=== PATIENT | female | born 1945 ===

== ENCOUNTER 2021-05-31 06:18 | Day surgery (SDC) | payer OTHER | END 2021-05-31 10:45 | disposition home or self-care (01) | LOC: AMB-ENDOS 06:18 → CIR.AMB 06:18 → AMB-ENDOS 10:45 → CIR.AMB 13:00 | PROVIDERS: ATTEND Surgery | DX: K63.5 Polyp of colon (principal) ==

== ENCOUNTER 2021-10-22 12:45 | Inpatient (IN) | payer OTHER ==
[~2021-10-22] VITALS: Ht 152.4 cm; Wt 61.2 kg
[2021-10-26] MEDS ORDERED: ATORVASTATIN CA10 MG PO (09:58)
[2021-11-10] MEDS ORDERED: VANCOMYCIN HCL125 MG PO (10:46)
[2021-11-10] MEDS ORDERED: CIPRO500 MG PO (10:47)
== END 2021-11-10 11:21 | disposition home or self-care (01) | DRG 330 ==
LOC: SURH 10-26 12:00 → O/R 10-26 12:09 → SURH 10-26 12:09
PROVIDERS: ADMIT Surgery; ATTEND Surgery
PROC: 07BB4ZZ Excision of Mesenteric Lymphatic, Percutaneous Endoscopic Approach (ICD-10-PCS; 2021-10-26)
PROC: 0DTF4ZZ Resection of Right Large Intestine, Percutaneous Endoscopic Approach (ICD-10-PCS; principal; 2021-10-26 12:00)
PROC: 4A12X4Z Monitoring of Cardiac Electrical Activity, External Approach (ICD-10-PCS; 2021-10-27)
PROC: BW21YZZ Computerized Tomography (CT Scan) of Abdomen and Pelvis using Other Contrast (ICD-10-PCS; 2021-11-03)
DX: C18.2 Malignant neoplasm of ascending colon (principal); K92.1 Melena; J44.1 Chronic obstructive pulmonary disease with (acute) exacerbation; A04.72 Enterocolitis due to Clostridium difficile, not specified as recurrent; J44.9 Chronic obstructive pulmonary disease, unspecified; R09.02 Hypoxemia; E83.42 Hypomagnesemia; I10 Essential (primary) hypertension; G47.33 Obstructive sleep apnea (adult) (pediatric)

== ENCOUNTER 2021-10-22 14:08 | Outpatient (CLI) | payer OTHER | END 2021-10-22 14:17 | disposition home or self-care (01) | LOC: LAB 14:08 | PROVIDERS: ATTEND Surgery | DX: D12.2 Benign neoplasm of ascending colon (principal); D37.4 Neoplasm of uncertain behavior of colon; K92.1 Melena; J44.1 Chronic obstructive pulmonary disease with (acute) exacerbation; I10 Essential (primary) hypertension ==

== ENCOUNTER 2021-12-29 17:46 | Inpatient (IN) | payer OTHER ==
[~2021-12-29] VITALS: Ht 152.4 cm; Wt 54.4 kg
[~2021-12-29 17:46] MED LIST: ATORVASTATIN CA10 MG PO; CIPRO500 MG PO; VANCOMYCIN HCL125 MG PO
--- NOTE | 2021-12-29 18:24 | NUR ---
SE LLAMO EN VARIAS OCASIONES Y NO SE ENCUANTRA EN SIMEON.
--- NOTE | 2021-12-29 18:56 | NUR ---
SE RECIBE PTE MASCULINO ALERTA Y ORIENTADO X3, QUIEN REFIERE DENNY SIDO SOMETIDO A CIRUGIA DEL COLON EL 5 2021 Y DESDE ENTONCES THOMPSON ESTADO CON UNAS DIARREAS CONSTANTES; JAKI EN LAS ULTIMAS SEMANAS LAS MISMAS EDUARDO ESTADO SIENDO CON YULISA Y NO MEJORA. PTE FUE OPERADO POR DR. NIGEL RICARDO. SE SWATI S/V Y SE UBICA PTE EN AREA DE OBSERVACION PARA EVALUACION MEDICA.
--- NOTE | 2021-12-29 19:23 | NUR ---
EVALUA PTE. SE EDUCA SOBRE [place] MEDICO EL CUAL REFIERE COMPRENDER. SE REALIZAN MUESTRAS DE LABORATORIO BAJO MEDIDAS ASEPTICAS. SE ADMINISTRA IV'S ACE ORDEN MEDICA. SE COORDINA CT. PTE MANEJADO POR .
--- NOTE | 2021-12-30 08:04 | NUR ---
SE RECIBE PACIENTE DEL TURNO ANTERIOR UBICADO EN FRANCIS CON BARANDAS ELEVADAS POR PRECAUCION A CAIDAS, CANALIZADO EN LA CON ANGIO #20, EL MISMO SE ENCUENTRA PATENTE, SHAMAR DE EDEMA Y ERITEMA, BAJANDO 0.9% NSS A 150ML/HR. PENDIENTE CONSULTAS. SE MANTIENE BAJO OBSERVACION POR CAMBIOS EN [place] MEDICO.
[2021-12-31] MEDS ORDERED: PROAIR HFA8.5 GM (13:38)
[2021-12-31] MEDS ORDERED: ABATINEX680 MG (13:38)
[2021-12-31] MEDS ORDERED: ANORO ELLIPTA1 EACH (13:38)
[2021-12-31] MEDS ORDERED: BUPROPION HCL150 M1 (13:38)
[2021-12-31] MEDS ORDERED: OMEPRAZOLE20 MG (13:38)
[2021-12-31] MEDS ORDERED: SIMVASTATIN20 MG (13:38)
[2022-01-12] MEDS ORDERED: PREVALITE POWD231 GM PO (16:06)
== END 2022-01-12 17:28 | disposition home or self-care (01) | DRG 372 ==
LOC: ER 17:46 → MEDI 12-30 15:37 → MEDJ 12-30 15:37 → MEDI 12-30 16:26 → MEDJ 12-31 09:24 → SURH 01-12 07:41 → MEDJ 01-12 09:38
PROVIDERS: ADMIT Internal Medicine; ATTEND Internal Medicine
PROC: 0DBM8ZX Excision of Descending Colon, Via Natural or Artificial Opening Endoscopic, Diagnostic (ICD-10-PCS; principal; 2022-01-04)
PROC: 0DBL8ZX Excision of Transverse Colon, Via Natural or Artificial Opening Endoscopic, Diagnostic (ICD-10-PCS; 2022-01-04)
PROC: 0DBN8ZX Excision of Sigmoid Colon, Via Natural or Artificial Opening Endoscopic, Diagnostic (ICD-10-PCS; 2022-01-04)
PROC: 0DBP8ZX Excision of Rectum, Via Natural or Artificial Opening Endoscopic, Diagnostic (ICD-10-PCS; 2022-01-04)
PROC: 0DB98ZX Excision of Duodenum, Via Natural or Artificial Opening Endoscopic, Diagnostic (ICD-10-PCS; 2022-01-11)
PROC: 0DB68ZX Excision of Stomach, Via Natural or Artificial Opening Endoscopic, Diagnostic (ICD-10-PCS; 2022-01-11)
DX: A04.72 Enterocolitis due to Clostridium difficile, not specified as recurrent (principal); K55.1 Chronic vascular disorders of intestine; K29.80 Duodenitis without bleeding; D13.2 Benign neoplasm of duodenum; D13.1 Benign neoplasm of stomach; K86.89 Other specified diseases of pancreas; Z20.822 Contact with and (suspected) exposure to COVID-19; J44.9 Chronic obstructive pulmonary disease, unspecified; G47.33 Obstructive sleep apnea (adult) (pediatric)